=== PATIENT | male | born 1950 | race African-American/Black ===

== ENCOUNTER 2020-04-24 13:55 | Emergency (ER) | payer MEDICARE, OTHER, SELFPAY ==
[2020-04-24 14:12] VITALS: BP 123/75; PULSE 62; RESP 16; TEMP 36.9; O2SAT 96; BMI 24.4
--- NOTE | 2020-04-24 14:34 | HMH.EDGENADL ---
ED Disposition Clinical Impression: Bilateral foot pain, Edema of both feet Disposition: Home, Self-Care Condition on Discharge: Good Instructions: DI for Foot Pain Additional Instructions: Discontinue naproxen and start ibuprofen. Wrap feet and web roll and Panfilo wrap, elevate feet. Follow-up with Dr. Damico next week. Prescriptions: Ibuprofen [Ibuprofen 600mg Tab] 600 mg PO Q6H PRN #20 tab PRN Reason: Moderate Pain Prescription Printed Referrals: Dixon Damico MD [Primary Care Provider] - - Critical Care Critical Care Time: No Attestation: On , the high probability of a clinically significant, sudden or life threatening deterioration of the following system(s) required my full and direct attention, intervention and personal management. The time I documented below is in addition to time spent performing reported procedures but includes the following listed in this critical care notation. Medical Decision Making - Hunter Inquiry Pt receiving controlled substance: No Vital Signs: 04/24/20 14:12 04/24/20 16:43 Temperature 98.4 F Temperature Source Oral Pulse Rate [Right Radial] 62 60 Respiratory Rate 16 Blood Pressure [Right Arm] 123/75 156/70 H Blood Pressure Mean [Right Arm] 91 98 Blood Pressure Source [Right Arm] Automatic Cuff Automatic Cuff Blood Pressure Position [Right Arm] Sitting Sitting 02 Sat by Pulse Oximetry 96 98 Oxygen Delivery Method Room Air Room Air - Lab Data Lab Results 04/24/20 14:36: WBC 7.8, RBC 5.26, Hgb 15.9, Hct 48.0, MCV 91.2, MCH 30.2, MCHC 33.1, RDW 12.9, Plt Count 134 L, MPV 10.4, Neut % (Auto) 62.9, Lymph % (Auto) 30.1, [place] % (Auto) 5.3, Eos % (Auto) 0.4, Baso % (Auto) 1.2, Neut # (Auto) 4.9, Lymph # (Auto) 2.3, [place] # (Auto) 0.4, Eos # (Auto) 0.0, Baso # (Auto) 0.1 04/24/20 14:36: Sodium 137, Potassium 4.4, Chloride 101, Carbon Dioxide 30, Anion Gap 10.4, BUN 11, Creatinine 0.90, Estimated Creat Clear 80, Estimated GFR 84, Est GFR ( Amer) 102, Glucose 83, Calcium 9.5, Total Bilirubin 1.1, AST 49, ALT 32, Alkaline Phosphatase 84, NT-Pro-B Natriuret Pep 236 H, Total Protein 7.8, Albumin 4.2, Globulin 3.6 H, Albumin/Globulin Ratio 1.2 04/24/20 14:40: ESR 6 04/24/20 14:40: D-Dimer 1220 H* 04/24/20 14:40: Uric Acid 6.9, C-Reactive Protein 1.1 Result diagrams: 04/24/20 14:36 04/24/20 14:36 Orders (Tests/Meds): ORDERS Category Date Time Status Chest XR 2 view (NOT portable) [XR chest 2V] Stat Exams 04/24/20 15:40 Taken Foot XR right minimum 3 views [XR foot RT min 3V] Stat Exams 04/24/20 14:47 Taken XR foot LT min 3V Stat Exams 04/24/20 14:47 Taken - Radiology Data #1 Image(s): Chest, Foot/Toes (bilat) Image Reviewed: Yes I reviewed the patient's radiology image Right and left foot: Degenerative changes with spurs, no acute process. Chest: No acute disease, no cardiomegaly or pleural effusions or congestive heart failure. - US Data US Images: Lower Extremity (bilateral) Findings Narrative: As per [facility] procedure, doppler report received from cardiovascular rn: No DVT in either leg - Physician Consults Physician Consulted: Melvin Yanceyeet Time: 16:48 Reason -: Pt condition Comment/Response: He wants the patient's feet put in web roll and Panfilo wrap. 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 Dr. Charles prefers no opiates at this point, wants to change him from naproxen twice a day to ibuprofen 600 mg 3-4 times a day. General Adult HPI - General Chief complaint: PAIN Stated complaint: swellon legs and feet Time Seen by Provider: 04/24/20 14:34 Mode of Arrival: Wheelchair Limitations: No Limitations Description of Symptoms (Recalled from ER Triage Doc. by RN): PT C/O PAIN AND SWELLING IN BILATERAL FEET AND LOWER LEGS THAT HAS WORSENED OVER THE LAST 2 DAYS AND IS MAKING AMBULATION DIFFICULT. - History of Present Illness HPI narrative: The patient is brought fr
[2020-04-24 14:42] LABS: Basophils # 0.1 K/mm3 (0-0.2); Basophils % 1.2 % (0.1-2.0); Chloride 101 mmol/L (98-107); Eosinophils % 0.4 % (0.1-12.0); Hemoglobin 15.9 g/dL (14.1-18.0); Lymphocytes # 2.3 K/mm3 (0.7-4.5); Lymphocytes % 30.1 % (10-50); Mean Corpuscular HGB Conc 33.1 g/dL (31.8-35.4); Mean Corpuscular Hemoglobin 30.2 pg (27.0-31.2); Mean Corpuscular Volume 91.2 fl (80-94); Mean Platelet Volume 10.4 fl (7.4-10.4); Monocytes # 0.4 K/mm3 (0.1-1.0); Monocytes % 5.3 % (1.7-9.3); Neutrophils # 4.9 K/mm3 (1.8-7.8); Neutrophils % 62.9 % (37.0-80.0); Platelet Count 134 K/mm3 (142-424); Potassium 4.4 mmoL/L (3.5-5.1); Red Blood Count 5.26 M/mm3 (4.60-6.20); Red Cell Distribution Width 12.9 % (11.5-17.5); Sodium 137 mmol/L (136-145); White Blood Count 7.8 K/mm3 (4.8-10.8)
[2020-04-24 14:45] LABS: Alanine Aminotransferase 32 U/L (12-78); Albumin Level 4.2 g/dl (3.5-5.0); Albumin/Globulin Ratio 1.2 (1.1-1.8); Alkaline Phosphatase 84 U/L (38-126); Anion Gap 10.4 mEq/L (5-15); Aspartate Amino Transferase 49 U/L (17-59); Bilirubin,Total 1.1 mg/dl (0.2-1.3); Blood Urea Nitrogen 11 mg/dl (9-20); Carbon Dioxide 30 mmol/L (22.0-30.0); Creatinine Clearance Estimated 80 mL/min (50-200); Estimated Glomerular Filt Rate 84 ml/min (>60); GFR (African American) 102 ML/MIN (>60); Globulin 3.6 g/dL (1.3-3.2); Total Protein,Serum 7.8 g/dl (6.3-8.2)
[2020-04-24 14:46] LABS: Calcium 9.5 mg/dl (8.4-10.2); Glucose 83 mg/dl (74-100)
--- NOTE | 2020-04-24 14:47 | XR_ITS ---
PROCEDURE: XR FOOT RT MIN 3V CLINICAL INDICATION: painful feet Foot pain COMPARISON: No exams were available for comparison FINDINGS: No fracture or dislocation. No lytic or blastic change. There is normal mineralization. There are osteoarthritic changes of the 1st metatarsophalangeal joint and the 1st metatarsal tarsal joint as well as the talonavicular and navicular cuneiform joint. There is a small calcaneal spur and there is flexion deformity of toes 2 through 5. There is generalized vascular calcification. No lytic or blastic change. Osteoarthritis involves the PIP joint of the 5th toe Other findings:None. IMPRESSION: Degenerative changes as described above Dictated by: Werner Drummond MD 04/24/2020 18:22 Electronically signed by Werner Drummond MD in [place] 04/24/2020 18:22
--- NOTE | 2020-04-24 14:47 | XR_ITS ---
PROCEDURE: XR FOOT LT MIN 3V CLINICAL INDICATION: pain Left foot pain COMPARISON: XR FOOT RT MIN 3V from 04/24/2020 FINDINGS: No fracture or dislocation. No lytic or blastic change. There is normal mineralization. Mild osteoarthritic changes are present at the 1st metatarsophalangeal joint and at the 1st meta tarsal tarsal joint. Flexion deformity involves the 2nd through 5th toes. There is a small calcaneal spur and there is mild osteoarthritis of the navicular cuneiform joint. Other findings:None. IMPRESSION: Osteoarthritic changes and flexion deformity of the toes Dictated by: Werner Drummond MD 04/24/2020 18:21 Electronically signed by Werner Drummond MD in [place] 04/24/2020 18:21
[2020-04-24 14:55] LABS: NT Pro Brain Natriuretic Pep. 236 pg/mL (0-125)
[2020-04-24 15:16] LABS: C-Reactive Protein 1.1 mg/L (0-4)
[2020-04-24 15:30] LABS: Erythrocyte Sedimentation Rate 6 mm/hr (0-20)
[2020-04-24 15:31] LABS: D-Dimer 1220 ng/mL (0-400)
[2020-04-24 15:33] LABS: Uric Acid 6.9 mg/dl (3.5-8.5)
--- NOTE | 2020-04-24 15:33 | PC.NURSE ---
Critical Lab value called to Pasquale Torres RN
--- NOTE | 2020-04-24 15:34 | CA_ITS ---
APPROVED REPORT Bilateral Lower Extremity Venous Study for DVT. Organic Search Lead: DIANE Indications Lower Extremity Edema: swelling, pain, high d-dimer Vein Imaging CFV (R): compressive, spontaneous, phasic, augmentation FEM (R): compressive, spontaneous, phasic, augmentation POP (R): compressive, spontaneous, phasic, augmentation PTV (R): Compressible GSV (R): compressive, spontaneous, phasic, augmentation SSV (R): Compressible Peroneals (R):Compressible GAS (R): Compressible CFV (L): compressive, spontaneous, phasic, augmentation FEM (L): compressive, spontaneous, phasic, augmentation POP (L): compressive, spontaneous, phasic, augmentation PTV (L): Compressible GSV (L): compressive, spontaneous, phasic, augmentation SSV (L): Compressible Peroneals (L):Compressible GAS (L): Compressible Conclusion No evidence of DVT or superficial thrombophlebitis in the veins scanned of the right lower extremity. No evidence of DVT or superficial thrombophlebitis in the veins scanned of the left lower extremity. Electronically signed by : Werner Drummond MD 04/27/2020 16:21:40
--- NOTE | 2020-04-24 15:40 | XR_ITS ---
PROCEDURE: XR CHEST 2V CLINICAL HISTORY: swelling COMPARISON: No exams were available for comparison FINDINGS: The cardiomediastinal silhouette and pulmonary vascularity are within normal limits. The lungs are clear without infiltrates, suspicious nodules, or pleural effusions. No acute bony abnormalities. IMPRESSION: No acute findings. Dictated by: Werner Drummond MD 04/24/2020 18:16 Electronically signed by Werner Drummond MD in [place] 04/24/2020 18:16
--- NOTE | 2020-04-24 15:45 | PC.NURSE ---
Vascular Lab at bedside
--- NOTE | 2020-04-24 16:33 | PC.NURSE ---
dr jolanta de oliveira.
--- NOTE | 2020-04-24 16:39 | PC.NURSE ---
Dr Fortune speaking with Dr Charles
[2020-04-24 16:43] VITALS: BP 156/70; PULSE 60; O2SAT 98
[2020-04-24 16:54] VITALS: BP 160/87; PULSE 78; RESP 20; TEMP 36.8; O2SAT 98
--- NOTE | 2020-04-24 16:59 | PC.NURSE ---
Feet wrapped with web roll and mesha wraps per MD order
== END 2020-04-24 17:12 | disposition home or self-care (01) ==
PROVIDERS: Emergency Provider Emergency Medicine; PCP Family Medicine
DX: R60.0 Localized edema (principal); M79.671 Pain in right foot; M79.672 Pain in left foot; I69.320 Aphasia following cerebral infarction
CPT/HCPCS: 71046; 73630; 80053; 83880; 84550; 85025; 85378; 85651; 86140; 93970; 99283

== ENCOUNTER 2021-04-08 15:10 | Inpatient (IN) | payer MEDICARE, MEDICAID, SELFPAY ==
[2021-04-08] VITALS (16 sets, daily range): BP systolic 117–174; BP diastolic 57–93; PULSE 63–90; RESP 15–22; TEMP 36.6–36.9; O2SAT 98–100; BMI 21.1; BMI 19.7
--- NOTE | 2021-04-08 15:20 | XR_ITS ---
PROCEDURE: XR CHEST PORTABLE CLINICAL HISTORY: weakness COMPARISON: No exams were available for comparison FINDINGS: The cardiomediastinal silhouette and pulmonary vascularity are within normal limits. Tortuous descending thoracic aorta is noted. The lungs are clear without infiltrates, suspicious nodules, or pleural effusions. No acute bony abnormalities. IMPRESSION: No acute findings. Dictated by: Mavis Thornton 04/08/2021 15:53 Mavis Thornton in [place] 04/08/2021 15:53
--- NOTE | 2021-04-08 15:28 | HMH.EDGENADL ---
ED Disposition Clinical Impression: Hyperglycemia UTI (urinary tract infection) Qualifiers: Urinary tract infection type: site unspecified Hematuria presence: with hematuria Qualified Code(s): N39.0 - Urinary tract infection, site not specified Disposition: Admitted as Observation Condition on Discharge: Fair Referrals: Provider,Referral, [Primary Care Provider] - - Critical Care Critical Care Time: No Attestation: On 04/08/21, the high probability of a clinically significant, sudden or life threatening deterioration of the following system(s) required my full and direct attention, intervention and personal management. The time I documented below is in addition to time spent performing reported procedures but includes the following listed in this critical care notation. Medical Decision Making - Medical Records Medical records reviewed: Yes: I reviewed the patient's medical records. MR Comment: To prior emergency department visits here for swollen feet and legs, seen by me each time, 2016 and 2019. Noted to have podiatry visits for diabetic foot treatment. Personnel at [facility] communicated to our nurse that the patient used to be diabetic, but is no longer diabetic and is not on any diabetic medications and does not have his blood sugar checked. - Hunter Inquiry Pt receiving controlled substance: No Vital Signs: 04/08/21 15:10 04/08/21 15:46 Temperature 98.4 F Temperature Source Oral Pulse Rate 85 Pulse Rate [Left Radial] 90 Respiratory Rate 18 20 Blood Pressure 117/73 Blood Pressure [Right Arm] 133/74 Blood Pressure Mean 87 Blood Pressure Mean [Right Arm] 93 Blood Pressure Source [Right Arm] Automatic Cuff Blood Pressure Position [Right Arm] Sitting 02 Sat by Pulse Oximetry 98 100 Oxygen Delivery Method Room Air - Lab Data Lab Results 04/08/21 15:34: WBC 13.5 H, RBC 4.70, Hgb 13.5 L, Hct 41.3 L, MCV 87.9, MCH 28.7, MCHC 32.6, RDW 13.0, Plt Count 428 H, MPV 8.7, Neut % (Auto) 75.7, Lymph % (Auto) 17.0, [place] % (Auto) 6.1, Eos % (Auto) 0.5, Baso % (Auto) 0.7, Neut # (Auto) 10.2 H, Lymph # (Auto) 2.3, [place] # (Auto) 0.8, Eos # (Auto) 0.1, Baso # (Auto) 0.1 04/08/21 15:34: Sodium 131 L, Potassium 3.7, Chloride 97 L, Carbon Dioxide 26, Anion Gap 11.7, BUN 21 H, Creatinine 0.90, Estimated Creat Clear 73, Estimated GFR 84, Est GFR ( Amer) 102, Glucose 318 H, Calcium 9.1, Total Bilirubin 1.3, AST 58, ALT 34, Alkaline Phosphatase 200 H, Troponin I < 0.01, Total Protein 8.4 H, Albumin 3.2 L, Globulin 5.2 H, Albumin/Globulin Ratio 0.6 L 04/08/21 15:34: Lactate 2.6 H 04/08/21 15:42: Urine Color Brown, Urine Appearance Turbid, Urine pH 6.5, Ur Specific [place] >= 1.030, Urine Protein 2+, Urine Glucose (UA) Negative, Urine Ketones Negative, Urine Blood 3+, Urine Nitrate Positive, Urine Bilirubin Negative, Urine Urobilinogen 4.0, Ur Leukocyte Esterase 2+ A, Urine RBC Tntc, Urine WBC Tntc, Ur Squamous Epith Cells 3-5, Urine Bacteria 4+, Urine Yeast 2+ Result diagrams: 04/08/21 15:34 04/08/21 15:34 Orders (Tests/Meds): ED MEDICATIONS Generic Name Dose Route Start Last Admin Trade Name Freq PRN Reason Stop Dose Admin Ertapenem 1 gm/ Sodium 50 mls @ 100 mls/hr 04/08/21 16:30 04/08/21 16:30 Chloride IV 04/22/21 16:29 100 mls/hr Q24H FISH Administration Protocol Discontinued Medications Generic Name Dose Route Start Last Admin Trade Name Freq PRN Reason Stop Dose Admin Sodium Chloride 1,000 ml 04/08/21 15:47 04/08/21 15:58 Sodium Chloride 0.9% 1000ml Bag IV 04/08/21 15:48 1,000 ml BOLUS ONE Administration ORDERS Category Date Time Status CT abdomen pelvis wo con Stat Cat Scan 04/08/21 16:53 Taken Full Resp Panel w/COVID ([facility]) Routine Lab 04/08/21 15:47 Received Troponin I Q3H Lab 04/08/21 18:30 Ordered Troponin I Q3H Lab 04/08/21 21:30 Ordered Blood Culture Stat Micro 04/08/21 15:34 Received Urine Culture Stat Micro 04/08/21
[2021-04-08 16:00] LABS: Basophils # 0.1 K/mm3 (0-0.2); Basophils % 0.7 % (0.1-2.0); Eosinophils # 0.1 K/mm3 (0.0-0.4); Eosinophils % 0.5 % (0.1-12.0); Hematocrit 41.3 % (42.0-52.0); Hemoglobin 13.5 g/dL (14.1-18.0); Lymphocytes # 2.3 K/mm3 (0.7-4.5); Mean Corpuscular HGB Conc 32.6 g/dL (31.8-35.4); Mean Corpuscular Hemoglobin 28.7 pg (27.0-31.2); Mean Corpuscular Volume 87.9 fl (80-94); Mean Platelet Volume 8.7 fl (7.4-10.4); Monocytes # 0.8 K/mm3 (0.1-1.0); Monocytes % 6.1 % (1.7-9.3); Neutrophils # 10.2 K/mm3 (1.8-7.8); Neutrophils % 75.7 % (37.0-80.0); Platelet Count 428 K/mm3 (142-424); White Blood Count 13.5 K/mm3 (4.8-10.8)
[2021-04-08 16:01] LABS: Chloride 97 mmol/L (98-107); Potassium 3.7 mmoL/L (3.5-5.1); Sodium 131 mmol/L (136-145)
[2021-04-08 16:03] LABS: Alanine Aminotransferase 34 U/L (12-78); Aspartate Amino Transferase 58 U/L (17-59); Blood Urea Nitrogen 21 mg/dl (9-20); Creatinine Clearance Estimated 73 mL/min (50-200); Estimated Glomerular Filt Rate 84 ml/min (>60); GFR (African American) 102 ML/MIN (>60)
[2021-04-08 16:04] LABS: Microscopic, Urine URINE MICROSCOPIC (MICROSCOPIC)
[2021-04-08 16:04] LABS: Albumin Level 3.2 g/dl (3.5-5.0); Albumin/Globulin Ratio 0.6 (1.1-1.8); Alkaline Phosphatase 200 U/L (38-126); Anion Gap 11.7 mEq/L (5-15); Bilirubin,Total 1.3 mg/dl (0.2-1.3); Calcium 9.1 mg/dl (8.4-10.2); Carbon Dioxide 26 mmol/L (22.0-30.0); Globulin 5.2 g/dL (1.3-3.2); Glucose 318 mg/dl (74-100); Total Protein,Serum 8.4 g/dl (6.3-8.2)
--- NOTE | 2021-04-08 16:04 | ECG_ITS ---
APPROVED REPORT Exam: Resting ECG HR:85 bpm ECG Measurements Heart Rate 85 AXES ID 184 P 86 QRSd 90 QRS 23 QT 362 T 87 QTc 430 Conclusion Normal sinus rhythm with sinus arrhythmia Nonspecific ST and T wave abnormality Abnormal ECG Electronically signed by : Jacob Penaloza, 04/10/2021 11:38:25
[2021-04-08 16:07] LABS: Adenovirus,PCR Not Detected (NotDetected); Bordetella Pertussis Not Detected (NotDetected); Chlamydophila Pneumoniae, PCR Not Detected (NotDetected); Coronavirus 19, PCR Not Detected (NotDetected); Coronavirus 229E Not Detected (NotDetected); Coronavirus NL63 Not Detected (NotDetected); Coronavirus OC43 Not Detected (NotDetected); Coronovirus HKU1,PCR Not Detected (NotDetected); Human Metapneumovirus Not Detected (NotDetected); Influenza A, PCR Not Detected (NotDetected); Influenza AH1, 2009 Not Detected (NotDetected); Influenza AH1, PCR Not Detected (NotDetected); Influenza AH3,PCR Not Detected (NotDetected); Influenza B, PCR Not Detected (NotDetected); Mycoplasma Pneumoniae, PCR Not Detected (NotDetected); Parainfluenza 1, PCR Not Detected (NotDetected); Parainfluenza 2, PCR Not Detected (NotDetected); Parainfluenza 3, PCR Not Detected (NotDetected); Parainfluenza 4, PCR Not Detected (NotDetected); Respiratory Syncytial Virus Not Detected (NotDetected); Rhinovirus/Enterovirus Not Detected (NotDetected)
[2021-04-08 16:08] LABS: Appearance,Urine TURBID (Clear); Blood, Urine 3+ (Negative); Color,Urine BROWN (Yellow); Glucose,Urine (UA) Negative (Negative); Ketones,Urine Negative (Negative); Leukocyte Esterase,Urine 2+ (Negative); Nitrate,Urine POSITIVE (Negative); PH,Urine 6.5 (5.0-8.5); Protein,Urine 2+ (Negative); Specific Gravity, Urine >= 1.030 (1.005-1.030)
[2021-04-08 16:09] LABS: Lactic Acid 2.6 mmol/L (0.7-2.1)
[2021-04-08 16:20] LABS: Bacteria,Urine 4+ /lpf; Bilirubin,Urine Negative (Negative); RBC,Urine TNTC #/hpf (0-3); WBC,Urine TNTC #/hpf (0-3)
[2021-04-08 16:21] LABS: Yeast,Urine 2+ /lpf
[2021-04-08 16:21] LABS: Troponin I < 0.01 ng/ml (0.00-0.034)
--- NOTE | 2021-04-08 16:50 | PC.NURSE ---
Dr Fortune speaking with Dr Tan
--- NOTE | 2021-04-08 16:53 | CT_ITS ---
PROCEDURE INFORMATION: Exam: CT Abdomen And Pelvis Without Contrast Exam date and time: 04/08/2021 4:53 PM Age: 70 years old Clinical indication: Other: Hematuria TECHNIQUE: Imaging protocol: Computed tomography of the abdomen and pelvis without contrast. Radiation optimization: All CT scans at this facility use at least one of these dose optimization techniques: automated exposure control; mA and/or kV adjustment per patient size (includes targeted exams where dose is matched to clinical indication); or iterative reconstruction. COMPARISON: No relevant prior studies available. FINDINGS: Liver: Normal. No mass. Gallbladder and bile ducts: Normal. No calcified stones. No ductal dilation. Pancreas: Normal. No ductal dilation. Spleen: Normal. No splenomegaly. Adrenal glands: Normal. No mass. Kidneys and ureters: No hydronephrosis or stone. 0.5 cm right renal simple cyst. Stomach and bowel: Moderate stool ball distends the rectum without abscess or obstruction. Appendix: The appendix is not visualized. No inflammatory change around the cecum. Intraperitoneal space: Unremarkable. No free air. No significant fluid collection. Vasculature: Extensive atherosclerosis without aneurysm. Lymph nodes: Unremarkable. No enlarged lymph nodes. Urinary bladder: Unremarkable as visualized. Reproductive: Unremarkable as visualized. Bones/joints: Eroded vertebral body endplates at L4-L5 level with surrounding soft tissue prominence surround the vertebral bodies suggesting discitis and osteomyelitis. Evaluation for abscess is limited on this nonenhanced study. Consider MRI without and with contrast. Soft tissues: Unremarkable. Other findings: No other acute disease seen on nonenhanced study. As Above. IMPRESSION: 1. Eroded vertebral body endplates at L4-L5 level with surrounding soft tissue prominence surrounding the vertebral bodies suggesting discitis and osteomyelitis. Evaluation for abscess is limited on this nonenhanced study. Recommend MRI without and with contrast. 2. Moderate stool ball distends the rectum without abscess or obstruction. 3. No other acute disease seen on nonenhanced study. As Above. COMMENTS: Consistent with the [employer]'s Incidental Findings Committee white paper (J Am Jaun Radiol 2018): Any incidental renal lesion less than 1 cm or classified as too small to characterize, or any incidental cystic renal lesion characterized as simple-appearing, is likely benign. No follow-up imaging is recommended for these lesions per consensus recommendations based on imaging criteria.
[2021-04-08 19:00] LABS: Troponin I < 0.01 ng/ml (0.00-0.034)
[2021-04-08 19:48] LABS: Reflex Lactic Add Lactic Reflex
[2021-04-08 20:24] LABS: Lactic Acid Follow Up (RFLX 1) 1.8 mmol/L (0.7-2.1)
--- NOTE | 2021-04-08 21:55 | PC.NURSE ---
CALLED REPORT TO Gabriela Ferguson rn
--- NOTE | 2021-04-08 22:06 | PC.NURSE ---
pt arrived to floor via stretcher
[2021-04-08 22:16] LABS: Troponin I < 0.01 ng/ml (0.00-0.034)
[2021-04-08 23:13] LABS: POC Glucose,Bedside 148 (70-110)
[2021-04-09] VITALS: BP 166/72; PULSE 80; PULSE 84; RESP 17; TEMP 36.7; O2SAT 97
--- NOTE | 2021-04-09 03:09 | PC.NURSE ---
Pt is able to follow commands well and shakes head yes and no appropriately to questions. Pt is nonverbal, which is baseline. Lungs are CTA, on room air. Bowel sounds x4, abd soft and nontender. Pt shakes head yes when asked if hes in pain and points to his bladder. Pain is controlled with morphine per mar. Pt is incontinent, UOP is brown and very foul smelling. Pt turns independently. No edema noted, pulses are equal. IV patent, NS @ 100. VSS, call light in reach, no concerns at this time.
[2021-04-09 04:00] VITALS: BP 166/64; PULSE 70; PULSE 74; RESP 17; TEMP 36.7; O2SAT 96
[2021-04-09 05:00] VITALS: BMI 19.6
[2021-04-09 05:49] LABS: POC Glucose,Bedside 108 (70-110)
[2021-04-09 06:49] LABS: Anion Gap 7.3 mEq/L (5-15); Blood Urea Nitrogen 18 mg/dl (9-20); Calcium 8.7 mg/dl (8.4-10.2); Carbon Dioxide 28 mmol/L (22.0-30.0); Chloride 102 mmol/L (98-107); Creatinine Clearance Estimated 67 mL/min (50-200); Estimated Glomerular Filt Rate 84 ml/min (>60); GFR (African American) 102 ML/MIN (>60); Glucose 118 mg/dl (74-100); Potassium 3.3 mmoL/L (3.5-5.1); Sodium 134 mmol/L (136-145)
--- NOTE | 2021-04-09 07:32 | HMH.PHAVTE ---
[facility] Pharmacy VTE Monitoring - Patient Demographics Admission date: 04/08/21 Report Date: 04/09/21 Time: 07:32 Allergies/Adverse Reactions: Patient Allergies No Known Allergies Allergy (Verified 10/21/20 11:30) Height: 1.85 m Weight: 67.16 kg Patient Problems: Current Active Problems (This Medical Record has been edited. Action required.) UTI (urinary tract infection) (Acute) Hyperglycemia (Acute) - VTE Risk Labs: VTE Related Lab Results Hgb 13.5 g/dL (14.1-18.0) L 04/08/21 15:34 Hct 41.3 % (42.0-52.0) L 04/08/21 15:34 Plt Count 428 K/mm3 (142-424) H 04/08/21 15:34 BUN 18 mg/dl (9-20) 04/09/21 05:34 Creatinine 0.90 mg/dl (0.66-1.25) 04/09/21 05:34 Estimated Creat Clear 67 mL/min (50-200) 04/09/21 05:34 Was VTE Risk Assessment Performed: No VTE Score: 3 VTE Risk Level: Low Risk - Prophylaxis VTE Prophylaxis Ordered?: Yes Types of VTE Prophylaxis: TEDS Knee High Location of Applied Device: Bilateral Lower Extremeties
--- NOTE | 2021-04-09 07:36 | HMH.PHAINT ---
MEDICATION RECONCILIATION COMPLETED ON PATIENT USING EXTERNAL FILL HISTORY FROM PHARMACY. -ANGELINA SCHUMACHER, BLANCHED
[2021-04-09 08:00] VITALS: BP 125/53; PULSE 79; RESP 20; TEMP 36.9; O2SAT 98
--- NOTE | 2021-04-09 08:59 | SW/DCPLANNER ---
Addendum entered by [facility] 04/12/21 09:18: Patients brother is agreeable to assist with any paperwork via fax. Vahid Herrera [phone] Addendum entered by [facility] 04/12/21 08:40: I have updated Kusum Yi with [facility] that this patient will not discharge today. I will continue to update Kusum during patients stay. Addendum entered by [facility] 04/09/21 12:46: This patient has been accepted to [facility] once medically stable for discharge. I have informed Dr Barlow/Fadi of plan. Dr Tan has also agreed to follow this patient while at [facility]. Addendum entered by [facility] 04/09/21 09:52: I have spoke with Scale Model Maker Prabha at [facility] ([phone]) regarding this patient. Prabha has stated that this patient has been with [facility] since January of 2014. Patient is nonverbal and has been nonverbal since most of his adult life and per Prabha makes his own decisions. Patient was admitted to [facility] in January for sepsis then sent to their skilled unit. Prabha stated that patient was discharged back to [facility] first of February. Prabha has been searching for placement for this patient since second week of February. Prabha has been unsuccessful with placement: sent to [facility] and [place] in [facility]. Prabha stated that she also spoke with a lady (Hawa Forman) that assist with placement and has not heard back. Prabha stated that she will make contact with patients family in [place] to ask if they will be willing to assist this patient with any paperwork. I will continue to follow up with Prabha and Cosmo Forrest regarding this patient. Original Note: Patient currently resides at [facility]. I have attempted to contact patients family member (Kusum Ramos) listed in demographics: VM goes to [facility] and mailbox is currently full. I will continue to try to contact Kusum today. At this time patient will more than likely need placement at time of discharge. I have spoke with Kusum Yi at [facility] whom stated they currently have males beds available: patient information has been faxed. I will also speak with Kathie at [place] if [facility] is not able to accept. Patient will not be ready for discharge until next week. I will continue to get in contact with Curry Erazo, Kusum Ramos and Cosmo Forrest/Opal Mejia.
--- NOTE | 2021-04-09 11:15 | CA_ITS ---
APPROVED REPORT EXAM: Limited 2D Echocardiogram Music Typographer: Emily Herr RVT Ht: 6 ft 0 in Wt: 148lbs BSA: 1.87 BP: 125/53 mmHg Indications: MURMUR,SMOKR,DM,HTN,HLD,EDEMA VERY TDS-PT UNABLE TO FOLLOW COMMANDS, PT SCANNED ON BACK TILTED TO RT 2D Dimensions LVOT 2.62 cm (M/F) 1.5-2.5 M-Mode Dimensions RVDd 3.77 cm (0.9-2.6) LA Diam 3.06 cm (1.9-4.0) LVDd 5.48 cm (3.5-5.7) Ao Diam 4.99 cm (2.0-3.7) LVDs 2.85 cm (3.5-5.7) IVSd 1.52 cm (0.6-1.1) PWd 1.05 cm (0.6-1.1) EF (Teich) 78.90% FS 48.00% EDV (Teich) 146.20 mL ESV (Teich) 30.90 mL LV Diastology E Decel Time 203.00 (160-240 msec) E/A Ratio 0.8 Aortic Valve AO Peak GR. 3.80 mmHg Mitral Valve MV E Max Justyn. 59.00 (40-130 cm/s) MV A Velocity 70.00 (40-130 cm/s) E/A Ratio 0.85 MV Decel. Time 203.00 (160-240 ms) MV PHT 60.00 ms Pulmonary Valve PV Peak Velocity 77.00 (50-150 cm/s) Tricuspid Valve TR P. Velocity 274.00 cm/s RAP Estimate 10.00 mmHg RVSP 40.00 mmHg Left Ventricle Technically very challenging and difficult study because of the patient factors and poor acoustic windows. Left atrium is mildly enlarged, left ventricle is normal size, mild concentric left ventricular hypertrophy, visually estimated ejection fraction approximately 45 to 50%, there is abnormal septal motion, Doppler evidence of impaired LV relaxation seen, but the diastolic parameters were not obtained. Right Ventricle Right atrium and right ventricle are mildly enlarged with normal contractility. Aortic Valve Aortic valve is minimally thickened and fibrosed, there is no aortic stenosis or aortic insufficiency. Mitral Valve Mitral valve is minimally thickened, there is mild mitral regurgitation. Tricuspid Valve Tricuspid grossly normal, there is mild tricuspid regurgitation. Calculated right ventricular systolic pressure is 40 mmHg. Pulmonic Valve Pulmonic valve is poorly visualized. Great Vessels Aortic root is normal size. Pericardium Trivial pericardial effusion noted. Conclusion 1. Technically very difficult and challenging study. 2. Mild biatrial alignment, normal left ventricular size, mild concentric left ventricular hypertrophy, visually estimated ejection fraction is probably 45 to 50%, there is abnormal septal motion, Doppler evidence of impaired LV relaxation seen. 3. Mild mitral and tricuspid regurgitation, calculated right ventricular systolic pressure is 40 mmHg. Inferior vena cava is mildly dilated. 4. Trivial pericardial effusion noted. Electronically signed by : Royce Garcia, 04/10/2021 07:28:21
--- NOTE | 2021-04-09 11:15 | CT_ITS ---
PROCEDURE: CT HEAD/BRAIN WO CON CLINICAL INDICATION: ams COMPARISON: No exams were available for comparison TECHNIQUE: Axial images obtained. All CT scans at the facility use one or more dose reduction, viz: automated exposure control, ma/kV adjustment per patient size (including targeted exams where dose is matched to indication, i.e. head), or iterative reconstruction technique. FINDINGS: Encephalomalacia is noted in the left temporal and left posterior parietal lobes, likely sequela of old infarct. Focal hypodensity with encephalomalacia noted in the left frontal and parietal lobes, likely sequela of old infarcts. No acute intra or extra-axial hemorrhage, space occupying lesion or acute infarct is noted. Ex vacuo dilation of the ventricles are noted, worse in the left lateral ventricle. Mildly dilated 3rd ventricle is noted. There is generalized parenchymal volume loss. Scattered periventricular and subcortical white matter hypodensities are noted, may represent microvascular changes. Atherosclerotic vascular calcification is noted. Calcification noted in the pineal gland. No midline shift or mass effect. The visualized osseous structures are unremarkable. Minor mucosal thickening of the ethmoidal sinuses. The rest of the paranasal sinuses are unremarkable. Mastoid air cells are clear. IMPRESSION: No acute infarcts, intra or extra-axial hemorrhage. 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 Generalized volume loss, microvascular changes and atherosclerotic disease. Dictated by: Mavis Thornton 04/09/2021 12:36 Mavis Thornton in [place] 04/09/2021 12:36
--- NOTE | 2021-04-09 11:21 | HMH.HP ---
*Admission Date: 04/08/21 *Chief complaint: ams *History of present illness: 70 yr old male presents to ed via ambulance from [facility] assisted living. The patient is nonverbal. 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 Per ed staff at [facility] thought he was getting dehydrated because his eyes and mouth are dry and he is refusing to eat and drink. They report that his primary care provider is trying to get him moved into a higher level of care, but thus far unsuccessful. Handwritten note sent from [facility] says that the patient has been treated for this previously and has seen primary care provider Dr. Jones of [facility]. Pt was found to have UTI and admitted for further work up and pos higher level of care at [facility] History I have reviewed the patient's past medical history: Yes Medical History: Reports:: Cerebrovascular Accident, Diabetes Mellitus Type 2, Hepatitis, Hyperlipidemia, Hypertension, Seizures Denies:: Diabetes Mellitus Type 1 *Have you ever received a pneumonia vaccine?: No *Have you received a flu vaccine this season?: No Other Medical History: Reports: Other Other Surgeries: Yes: No Previous Surgery - *Social History Smoking Status: Unknown if ever smoked Alcohol Intake: never Alcohol Intake Frequency:: other Substance Use Type: former substance user *Occupational Status:: disabled Housing: assisted living facility *Travel in the last 8 weeks: None Family Hx:: Unable to obtain Review of Systems - Review of Systems Review of systems:: unable to obtain, pertinent systems reviewed and negative unless documented below - Constitutional Denies body ache(s) - Eyes Denies blurry vision - ENT Denies bleeding gums - *Cardiovascular Denies chest pain with activity - *Respiratory Denies chest congestion - *Gastrointestinal Denies nausea, Denies vomiting - *Genitourinary Denies urinary frequency - *Musculoskeletal Denies neck pain - Integumentary/Breasts Denies rash - *Neurologic Denies localized weakness - Psychiatric Denies anxiety - Endocrine Denies flushing - Hematologic/Lymphatic Denies enlarged lymph nodes - Allergic/Immunologic Denies itchy eyes Meds Home Medications Medication Instructions Recorded Confirmed Type hydrochlorothiazide 25 mg tablet 50 mg PO DAILY 07/30/20 04/08/21 History Atorvastatin Calcium [Lipitor 20mg 20 mg PO HS 04/08/21 04/08/21 History Tablet*] Metoprolol Tartrate [Lopressor 12.5 mg PO BID 04/08/21 04/08/21 History 25mg tablet] Allergies Allergy/AdvReac Type Severity Reaction Status Date / Time No Known Allergies Allergy Verified 10/21/20 11:30 Exam Vital signs and Labs for Last 24 Hours: Temp Pulse Resp BP Pulse Ox 98.4 F 79 20 125/53 L 98 04/09/21 08:00 04/09/21 08:00 04/09/21 08:00 04/09/21 08:00 04/09/21 08:00 Laboratory Results - last 24 hr 04/08/21 15:34: WBC 13.5 H, RBC 4.70, Hgb 13.5 L, Hct 41.3 L, MCV 87.9, MCH 28.7, MCHC 32.6, RDW 13.0, Plt Count 428 H, MPV 8.7, Neut % (Auto) 75.7, Lymph % (Auto) 17.0, [place] % (Auto) 6.1, Eos % (Auto) 0.5, Baso % (Auto) 0.7, Neut # (Auto) 10.2 H, Lymph # (Auto) 2.3, [place] # (Auto) 0.8, Eos # (Auto) 0.1, Baso # (Auto) 0.1 04/08/21 15:34: Sodium 131 L, Potassium 3.7, Chloride 97 L, Carbon Dioxide 26, Anion Gap 11.7, BUN 21 H, Creatinine 0.90, Estimated Creat Clear 73, Estimated GFR 84, Est GFR ( Amer) 102, Glucose 318 H, Calcium 9.1, Total Bilirubin 1.3, AST 58, ALT 34, Alkaline Phosphatase 200 H, Troponin I < 0.01, Total Protein 8.4 H, Albumin 3.2 L, Globulin 5.2 H, Albumin/Globulin Ratio 0.6 L 04/08/21 15:34: Lactate 2.6 H 04/08/21 15:42: Urine Color Brown, Urine Appearance Turbid, Urine pH 6.5, Ur Specific [place] >= 1.030, Urine Protein 2+, Urine Glucose (UA) Negative, Urine Ketones Negative, Urine Blood 3+, Urine Nitrate Positive, Urine Bilirubin Negative, Urine Urobilinogen 4.0, Ur Leukocyte Esterase 2+ A, Ur
[2021-04-09 12:04] LABS: POC Glucose,Bedside 108 (70-110)
[2021-04-09 14:00] VITALS: BMI 19.5
[2021-04-09 16:00] VITALS: BP 122/61; PULSE 73; RESP 16; TEMP 37.3; O2SAT 100
[2021-04-09 16:32] LABS: POC Glucose,Bedside 118 (70-110)
--- NOTE | 2021-04-09 17:10 | PC.NURSE ---
NO ACUTE CHANGES. PT IS NON VERBAL. AMBULATES WITH ONE ASSIST. APPETITE HAS BEEN FAIR. VSS. SAFETY IN PLACE. WILL CONT. TO MONITOR.
[2021-04-09 20:00] VITALS: BP 129/69; PULSE 63; RESP 17; TEMP 36.4; O2SAT 100
[2021-04-09 22:21] LABS: POC Glucose,Bedside 123 (70-110)
[2021-04-10 04:00] VITALS: BP 138/72; PULSE 64; RESP 16; TEMP 36.6; O2SAT 99
--- NOTE | 2021-04-10 04:08 | PC.NURSE ---
PT HAS DONE WELL AND SLEPT MOST OF THIS SHIFT. HE IS NON-VERBAL, BUT A&OX4 WHICH IS BASELINE. COMMUNICATES WELL USING HANDS AND HEAD GESTURES. CAN FOLLOW COMMANDS. IV PATENT AND INFUSING WELL. NO ACUTE CHANGES. PT HAS DENIED PAIN THIS SHIFT. CALL LIGHT WITHIN REACH. WILL CONTINUE TO MONITOR.
[2021-04-10 05:00] VITALS: BMI 19.5
[2021-04-10 05:34] LABS: POC Glucose,Bedside 94 (70-110)
[2021-04-10 07:44] VITALS: BP 159/85; PULSE 73; RESP 18; TEMP 37.1; O2SAT 99
[2021-04-10 08:03] LABS: Basophils # 0.1 K/mm3 (0-0.2); Basophils % 0.7 % (0.1-2.0); Eosinophils % 0.3 % (0.1-12.0); Hematocrit 37.3 % (42.0-52.0); Hemoglobin 11.6 g/dL (14.1-18.0); Lymphocytes # 3.1 K/mm3 (0.7-4.5); Lymphocytes % 21.5 % (10-50); Mean Corpuscular Hemoglobin 27.7 pg (27.0-31.2); Mean Corpuscular Volume 89.4 fl (80-94); Mean Platelet Volume 7.1 fl (7.4-10.4); Monocytes # 1.2 K/mm3 (0.1-1.0); Monocytes % 8.4 % (1.7-9.3); Neutrophils # 9.9 K/mm3 (1.8-7.8); Neutrophils % 69.1 % (37.0-80.0); Platelet Count 417 K/mm3 (142-424); Red Blood Count 4.17 M/mm3 (4.60-6.20); Red Cell Distribution Width 12.5 % (11.5-17.5); White Blood Count 14.4 K/mm3 (4.8-10.8)
[2021-04-10 08:13] LABS: Anion Gap 7.1 mEq/L (5-15); Blood Urea Nitrogen 15 mg/dl (9-20); Calcium 8.6 mg/dl (8.4-10.2); Carbon Dioxide 27 mmol/L (22.0-30.0); Chloride 101 mmol/L (98-107); Creatinine Clearance Estimated 67 mL/min (50-200); Estimated Glomerular Filt Rate 84 ml/min (>60); GFR (African American) 102 ML/MIN (>60); Glucose 148 mg/dl (74-100); Potassium 3.1 mmoL/L (3.5-5.1); Sodium 132 mmol/L (136-145)
--- NOTE | 2021-04-10 09:07 | P.PN_ITS ---
Internal Medicine - PN: Subj *Date: 04/11/21 *Time: 06:31 Interval history: pt with improvement and more alert - urine cult ure pending Exam Vital signs and Labs for Last 24 Hours: Temp Pulse Resp BP Pulse Ox 98.7 F 73 18 159/85 H 99 04/10/21 07:44 04/10/21 07:44 04/10/21 07:44 04/10/21 07:44 04/10/21 07:44 Laboratory Results - last 24 hr 04/09/21 11:56: POC Glucose 108 04/09/21 16:25: POC Glucose 118 H 04/09/21 21:41: POC Glucose 123 H 04/10/21 05:25: POC Glucose 94 04/10/21 07:32: WBC 14.4 H, RBC 4.17 L, Hgb 11.6 L, Hct 37.3 L, MCV 89.4, MCH 27.7, MCHC 31.0 L, RDW 12.5, Plt Count 417, MPV 7.1 L, Neut % (Auto) 69.1, Lymph % (Auto) 21.5, [place] % (Auto) 8.4, Eos % (Auto) 0.3, Baso % (Auto) 0.7, Neut # (Auto) 9.9 H, Lymph # (Auto) 3.1, [place] # (Auto) 1.2 H, Eos # (Auto) 0.0, Baso # (Auto) 0.1 04/10/21 07:32: Sodium 132 L, Potassium 3.1 L, Chloride 101, Carbon Dioxide 27, Anion Gap 7.1, BUN 15, Creatinine 0.90, Estimated Creat Clear 67, Estimated GFR 84, Est GFR ( Amer) 102, Glucose 148 H, Calcium 8.6 I & O for Last 24 hours: Intake & Output 04/07/21 04/08/21 04/09/21 04/10/21 11:59 11:59 11:59 11:59 Intake Total 480 / 480 2520 / 2520 Balance 480 / 480 2520 / 2520 Weight 148 lb 1 oz 147 lb 11.355 oz Microbiology Reports for the Last 24 Hours: Microbiology 04/08/21 15:42 Urine,Catheterized Urine Culture - Preliminary NO GROWTH AFTER 24 HOURS - Constitutional no acute distress, cachectic - *Routine HEENT Exam Head: Present: normocephalic Eye: Present: EOMI, PERRL ENT: Present: mucous membranes dry - *Routine Neck Exam Present: supple - *Routine Respiratory Exam Present: decreased breath sounds - *Routine Cardiovascular Exam Present: RRR, murmur - *Routine Abdominal Exam Present: soft - *Routine Extremities Exam Absent: calf tenderness - *Routine Skin Exam Present: intact - *Routine Neurological Exam Present: altered mental status more alert- mute still - Routine Psychiatric Exam Present: unable to assess Assessment and Plan (1) History of CVA (cerebrovascular accident) Status: Acute Category: Medical Code(s): Z86.73 - Personal history of transient ischemic attack (TIA), and cerebral infarction without residual deficits (2) Hyperglycemia Status: Acute Category: Medical Code(s): R73.9 - Hyperglycemia, unspecified (3) UTI (urinary tract infection) Status: Acute Qualifiers: Urinary tract infection type: site unspecified Hematuria presence: with hematuria Qualified Code(s): N39.0 - Urinary tract infection, site not specified; R31.9 - Hematuria, unspecified Category: Medical Code(s): N39.0 - Urinary tract infection, site not specified (4) Diabetes mellitus Status: Acute Qualifiers: Diabetes mellitus type: type 2 Diabetes mellitus group home insulin use: without radiology manager use Diabetes mellitus complication status: without complication Qualified Code(s): E11.9 - Type 2 diabetes mellitus without complications Category: Medical Code(s): E11.9 - Type 2 diabetes mellitus without complications (5) Expressive aphasia Status: Chronic Category: Medical Code(s): R47.01 - Aphasia
[2021-04-10 11:32] LABS: POC Glucose,Bedside 122 (70-110)
[2021-04-10 15:22] VITALS: BP 153/77; PULSE 61; RESP 18; TEMP 36.8; O2SAT 100
--- NOTE | 2021-04-10 15:32 | PC.NURSE ---
No acute changes this shift. Pt is non-verbal, but is able to make needs voiced and uses call cordova appropriately. Remains on room air. Denies pain. Continues to be incontinent of bladder, attends changed. Pt is able to turn and reposition himself independently. Bed alarm in place for safety. Call cordova w/in reach. Currently lying in bed resting.
[2021-04-10 16:03] LABS: POC Glucose,Bedside 102 (70-110)
[2021-04-10 20:00] VITALS: BP 146/73; PULSE 65; RESP 18; TEMP 36.8; O2SAT 100
[2021-04-10 20:34] LABS: POC Glucose,Bedside 100 (70-110)
[2021-04-11 04:00] VITALS: BP 143/64; PULSE 75; RESP 20; TEMP 36.9; O2SAT 96
[2021-04-11 05:00] VITALS: BMI 19.8
[2021-04-11 05:34] LABS: POC Glucose,Bedside 86 (70-110)
[2021-04-11 07:58] VITALS: BP 146/87; PULSE 71; RESP 20; TEMP 36.9; O2SAT 98
--- NOTE | 2021-04-11 09:29 | P.PN_ITS ---
Internal Medicine - PN: Subj *Date: 04/12/21 *Time: 07:16 Interval history: doing better - more alsert - sigrid diet Exam Vital signs and Labs for Last 24 Hours: Temp Pulse Resp BP Pulse Ox 98.4 F 71 20 146/87 H 98 04/11/21 07:58 04/11/21 07:58 04/11/21 07:58 04/11/21 07:58 04/11/21 07:58 Laboratory Results - last 24 hr 04/10/21 11:14: POC Glucose 122 H 04/10/21 15:55: POC Glucose 102 04/10/21 20:26: POC Glucose 100 04/11/21 05:16: POC Glucose 86 I & O for Last 24 hours: Intake & Output 04/08/21 04/09/21 04/10/21 04/11/21 11:59 11:59 11:59 11:59 Intake Total 480 / 480 2520 / 2520 1320 / 1320 Balance 480 / 480 2520 / 2520 1320 / 1320 Weight 148 lb 1 oz 147 lb 11.355 oz 149 lb 7 oz Microbiology Reports for the Last 24 Hours: Microbiology 04/08/21 15:34 Blood Blood Culture - Preliminary NO GROWTH AFTER 48 HOURS 04/08/21 15:34 Blood Blood Culture - Preliminary NO GROWTH AFTER 48 HOURS 04/08/21 15:42 Urine,Catheterized Urine Culture - Preliminary - Constitutional no acute distress - *Routine HEENT Exam Head: Present: normocephalic Eye: Present: EOMI, PERRL ENT: Present: mucous membranes dry - *Routine Neck Exam Absent: JVD - *Routine Respiratory Exam Absent: respiratory distress - *Routine Cardiovascular Exam Present: RRR, murmur - *Routine Abdominal Exam Present: soft - *Routine Extremities Exam Absent: calf tenderness - *Routine Skin Exam Present: intact - *Routine Neurological Exam Present: alert, CN II-XII intact - Routine Psychiatric Exam Present: normal affect Assessment and Plan (1) History of CVA (cerebrovascular accident) Status: Acute Category: Medical Code(s): Z86.73 - Personal history of transient ischemic attack (TIA), and cerebral infarction without residual deficits (2) Hyperglycemia Status: Acute Category: Medical Code(s): R73.9 - Hyperglycemia, unspecified (3) UTI (urinary tract infection) Status: Acute Qualifiers: Urinary tract infection type: site unspecified Hematuria presence: with hematuria Qualified Code(s): N39.0 - Urinary tract infection, site not specified; R31.9 - Hematuria, unspecified Category: Medical Code(s): N39.0 - Urinary tract infection, site not specified (4) Diabetes mellitus Status: Acute Qualifiers: Diabetes mellitus type: type 2 Diabetes mellitus senior living insulin use: without senior living use Diabetes mellitus complication status: without complica tion Qualified Code(s): E11.9 - Type 2 diabetes mellitus without complications Category: Medical Code(s): E11.9 - Type 2 diabetes mellitus without complications (5) Expressive aphasia Status: Chronic Category: Medical Code(s): R47.01 - Aphasia (6) Seizure disorder Status: Acute Category: Medical Code(s): G40.909 - Epilepsy, unspecified, not intractable, without status epilepticus
[2021-04-11 12:11] LABS: POC Glucose,Bedside 85 (70-110)
[2021-04-11 15:45] VITALS: BP 142/54; PULSE 64; RESP 18; TEMP 37.2; O2SAT 97
[2021-04-11 17:17] LABS: POC Glucose,Bedside 82 (70-110)
--- NOTE | 2021-04-11 18:20 | PC.NURSE ---
No acute changes. Non-verbal. Room air. Remains afebrile. Turns and repostions independently. Incontinent of bowel and bladder. Has had 4 BM's this shift. No complaints this shift. Safety in place. Call art w/in reach.
[2021-04-11 20:00] VITALS: BP 150/71; PULSE 66; RESP 18; TEMP 36.5; O2SAT 98
[2021-04-11 20:37] LABS: POC Glucose,Bedside 86 (70-110)
--- NOTE | 2021-04-12 01:24 | PC.NURSE ---
2300 patient cried out loudly, RN entered room to investigate sound. patient found to be having continuous short rhythmic contractions, all four extremities extended and stiff. head jerking to right side, bilateral eyes rolled back. breathing pattern varies from apneic for a few seconds followed by slightly labored breathing. episode lasted approximately 1.5 min, patient baseline is nonverbal, patient will not follow commands after episode. vs 149/85, hr 100, 96% on ra, 24 rr, temp 99. patient previously on seizure precautions. seizure pads in place, suction set up at bedside. at 2304 patient began having same symptoms as above noted, this episode lasting 2 min. RN receiving orders from physician while jerking going on. new orders received for 1 mg ativan ivp and 1250 mg keppra ivpb.
[2021-04-12 04:00] VITALS: BP 152/89; PULSE 76; RESP 18; TEMP 36.9; O2SAT 100
[2021-04-12 05:00] VITALS: BMI 20.3
[2021-04-12 06:11] LABS: POC Glucose,Bedside 104 (70-110)
--- NOTE | 2021-04-12 07:31 | PC.NURSE ---
no further seizure activity noted. patient lethargic, will open eyes and make eye contact when name said
[2021-04-12 07:58] VITALS: BP 156/75; PULSE 61; RESP 16; TEMP 36.5; O2SAT 98
--- NOTE | 2021-04-12 09:07 | HMH.ACPN2 ---
Internal Medicine - PN: Subj *Date: 04/13/21 *Time: 05:42 Interval history: seizure x2 last pm- somnolent today- will obtain eeg Exam Vital signs and Labs for Last 24 Hours: Temp Pulse Resp BP Pulse Ox 97.7 F 61 16 156/75 H 98 04/12/21 07:58 04/12/21 07:58 04/12/21 07:58 04/12/21 07:58 04/12/21 07:58 Laboratory Results - last 24 hr 04/11/21 11:35: POC Glucose 85 04/11/21 15:58: POC Glucose 82 04/11/21 20:19: POC Glucose 86 04/12/21 05:59: POC Glucose 104 I & O for Last 24 hours: Intake & Output 04/09/21 04/10/21 04/11/21 04/12/21 11:59 11:59 11:59 11:59 Intake Total 480 / 480 2520 / 2520 1320 / 1320 933 / 933 Balance 480 / 480 2520 / 2520 1320 / 1320 933 / 933 Weight 148 lb 1 oz 147 lb 11.355 oz 149 lb 7 oz 153 lb 6 oz Microbiology Reports for the Last 24 Hours: Microbiology 04/08/21 15:42 Urine,Catheterized Urine Culture - Final Yeast - Constitutional no acute distress - *Routine HEENT Exam Head: Present: normocephalic Eye: Present: EOMI, PERRL ENT: Present: mucous membranes dry - *Routine Neck Exam Present: supple - *Routine Respiratory Exam Present: decreased breath sounds - *Routine Cardiovascular Exam Present: RRR - *Routine Abdominal Exam Present: soft - *Routine Extremities Exam Absent: calf tenderness - *Routine Skin Exam Present: intact - *Routine Neurological Exam Present: alert, CN II-XII intact - Routine Psychiatric Exam Present: normal affect Assessment and Plan (1) History of CVA (cerebrovascular accident) Status: Acute Category: Medical Code(s): Z86.73 - Personal history of transient ischemic attack (TIA), and cerebral infarction without residual deficits (2) Hyperglycemia Status: Acute Category: Medical Code(s): R73.9 - Hyperglycemia, unspecified (3) UTI (urinary tract infection) Status: Acute Qualifiers: Urinary tract infection type: site unspecified Hematuria presence: with hematuria Qualified Code(s): N39.0 - Urinary tract infection, site not specified; R31.9 - Hematuria, unspecified Category: Medical Code(s): N39.0 - Urinary tract infection, site not specified (4) Diabetes mellitus Status: Acute Qualifiers: Diabetes mellitus type: type 2 Diabetes mellitus assisted insulin use: without long term care social worker use Diabetes mellitus complication status: without complication Qualified Code(s): E11.9 - Type 2 diabetes mellitus without complications Category: Medical Code(s): E11.9 - Type 2 diabetes mellitus without complications (5) Expressive aphasia Status: Chronic Category: Medical Code(s): R47.01 - Aphasia (6) Seizure disorder Status: Acute Category: Medical Code(s): G40.909 - Epilepsy, unspecified, not intractable, without status epilepticus
[2021-04-12 09:44] LABS: Chloride 96 mmol/L (98-107)
[2021-04-12 09:45] LABS: Potassium 3.2 mmoL/L (3.5-5.1); Sodium 132 mmol/L (136-145)
[2021-04-12 09:48] LABS: Anion Gap 11.2 mEq/L (5-15); Blood Urea Nitrogen 14 mg/dl (9-20); Calcium 8.7 mg/dl (8.4-10.2); Carbon Dioxide 28 mmol/L (22.0-30.0); Creatinine Clearance Estimated 70 mL/min (50-200); Estimated Glomerular Filt Rate 112 ml/min (>60); GFR (African American) 136 ML/MIN (>60); Glucose 107 mg/dl (74-100)
[2021-04-12 09:50] LABS: Basophils # 0.1 K/mm3 (0-0.2); Basophils % 0.7 % (0.1-2.0); Eosinophils # 0.1 K/mm3 (0.0-0.4); Eosinophils % 0.5 % (0.1-12.0); Hematocrit 40.6 % (42.0-52.0); Hemoglobin 12.6 g/dL (14.1-18.0); Lymphocytes # 2.5 K/mm3 (0.7-4.5); Lymphocytes % 18.4 % (10-50); Mean Corpuscular HGB Conc 31.1 g/dL (31.8-35.4); Mean Platelet Volume 7.5 fl (7.4-10.4); Monocytes % 7.3 % (1.7-9.3); Neutrophils # 9.8 K/mm3 (1.8-7.8); Neutrophils % 73.2 % (37.0-80.0); Platelet Count 434 K/mm3 (142-424); Red Blood Count 4.51 M/mm3 (4.60-6.20); Red Cell Distribution Width 12.5 % (11.5-17.5); White Blood Count 13.4 K/mm3 (4.8-10.8)
[2021-04-12 11:19] LABS: POC Glucose,Bedside 103 (70-110)
--- NOTE | 2021-04-12 11:22 | PC.NURSE ---
0903 THIS RN PHONED RT TO INFORM THEM OF AN EEG ORDER. RT VERBALIZED AN UNDERSTANDING.
--- NOTE | 2021-04-12 11:22 | HMH.ACPN ---
Internal Medicine - PN: Subj *Date: 04/12/21 *Time: 11:22 Exam Vital signs and Labs for Last 24 Hours: Temp Pulse Resp BP Pulse Ox 97.7 F 61 16 156/75 H 98 04/12/21 07:58 04/12/21 07:58 04/12/21 07:58 04/12/21 07:58 04/12/21 07:58 Laboratory Results - last 24 hr 04/11/21 11:35: POC Glucose 85 04/11/21 15:58: POC Glucose 82 04/11/21 20:19: POC Glucose 86 04/12/21 05:59: POC Glucose 104 04/12/21 09:16: WBC 13.4 H, RBC 4.51 L, Hgb 12.6 L, Hct 40.6 L, MCV 90.0, MCH 28.0, MCHC 31.1 L, RDW 12.5, Plt Count 434 H, MPV 7.5, Neut % (Auto) 73.2, Lymph % (Auto) 18.4, [place] % (Auto) 7.3, Eos % (Auto) 0.5, Baso % (Auto) 0.7, Neut # (Auto) 9.8 H, Lymph # (Auto) 2.5, [place] # (Auto) 1.0, Eos # (Auto) 0.1, Baso # (Auto) 0.1 04/12/21 09:16: Sodium 132 L, Potassium 3.2 L, Chloride 96 L, Carbon Dioxide 28, Anion Gap 11.2, BUN 14, Creatinine 0.70 D, Estimated Creat Clear 70, Estimated GFR 112, Est GFR ( Amer) 136 D, Glucose 107 H, Calcium 8.7 04/12/21 11:12: POC Glucose 103 I & O for Last 24 hours: Intake & Output 04/09/21 04/10/21 04/11/21 04/12/21 23:59 23:59 23:59 23:59 Intake Total 1560 / 1560 1560 / 2760 2132 Balance 1560 / 1560 1560 / 2760 2132 Weight 67 kg 67 kg 67.784 kg 69.57 kg Microbiology Reports for the Last 24 Hours: Microbiology 04/08/21 15:42 Urine,Catheterized Urine Culture - Final Yeast Assessment and Plan (1) History of CVA (cerebrovascular accident) Status: Acute Category: Medical Code(s): Z86.73 - Personal history of transient ischemic attack (TIA), and cerebral infarction without residual deficits (2) Hyperglycemia Status: Acute Category: Medical Code(s): R73.9 - Hyperglycemia, unspecified (3) UTI (urinary tract infection) Status: Acute Qualifiers: Urinary tract infection type: site unspecified Hematuria presence: with hematuria Qualified Code(s): N39.0 - Urinary tract infection, site not specified; R31.9 - Hematuria, unspecified Category: Medical Code(s): N39.0 - Urinary tract infection, site not specified (4) Diabetes mellitus Status: Acute Qualifiers: Diabetes mellitus type: type 2 Diabetes mellitus custodial insulin use: without termite renewal inspector use Diabetes mellitus complication status: without complication Qualified Code(s): E11.9 - Type 2 diabetes mellitus without complications Category: Medical Code(s): E11.9 - Type 2 diabetes mellitus without complications (5) Expressive aphasia Status: Chronic Category: Medical Code(s): R47.01 - Aphasia (6) Seizure disorder Status: Acute Category: Medical Code(s): G40.909 - Epilepsy, unspecified, not intractable, without status epilepticus The patient's infection will respond to the chosen ABx?: Yes Is the patient receiving the right drug, dose, and route?: Yes Could a more targeted ABx be ordered?: No (CONTINUE INVANZ FOR UTI, ADDED FLUCONAZOLE FOR YEAST)
--- NOTE | 2021-04-12 14:22 | DIET.NUTRFU ---
Pt with severe protein calorie malnutrition with loss of 14% BW past 6mo. Pt was residing at [facility] and they reported significant decreased PO intake. I have not been able to reach [facility] after several attempts and their mailbox is full...will continue to try to confirm past diet. Pt was given ADA diet with soft modifications for safety and TID glucerna. He ate ~25% Monday and the morning of Monday. He has since refused all nourishment since Monday night(04/10). Seizures noted, today pt is somulent. BG have decreased to WNL with 0 PO intake. Of important note pt has been off diabetic medication for some time per [place], though he did have hyperglycemia at admission. No changes to diet order at this time, continuing to monitor. As pt mentation improves, please continue to encourage/cue at meal times observing aspiration precautions.
[2021-04-12 15:59] VITALS: BP 167/76; PULSE 68; RESP 16; TEMP 36.9; O2SAT 96
[2021-04-12 16:09] LABS: POC Glucose,Bedside 86 (70-110)
--- NOTE | 2021-04-12 16:19 | PC.NURSE ---
PATIENT HAS BEEN LETHARGIC FOR MOST OF THIS RN SHIFT. PATIENT DID NOT EAT BREAKFAST, PATIENT ATE ABOUT 25% OF LUNCH. FSBS WAS 86 FOR 1630 CHECK. THIS RN PROVIDED PATIENT WITH ORANGE JUICE AND ENCOURAGE HIM TO DRINK. PATIENT TOOK TWO DRINKS AND PUSHED THIS RN HAND AWAY. NO OTHER CONCERNS AT THIS TIME.
[2021-04-12 20:00] VITALS: BP 153/82; PULSE 78; RESP 22; TEMP 37.3; O2SAT 95
[2021-04-12 21:24] LABS: POC Glucose,Bedside 102 (70-110)
--- NOTE | 2021-04-13 03:03 | PC.NURSE ---
Patient has had no seizure activity this shift. Resting with eyes closed, safety measures in place; will continue to monitor.
[2021-04-13 04:00] VITALS: BP 154/69; PULSE 71; RESP 16; TEMP 36.4; O2SAT 97
[2021-04-13 05:00] VITALS: BMI 20.1
[2021-04-13 06:39] LABS: POC Glucose,Bedside 85 (70-110)
[2021-04-13 07:33] VITALS: BP 131/70; PULSE 80; RESP 19; TEMP 36.8; O2SAT 98
--- NOTE | 2021-04-13 08:23 | P.PN_ITS ---
Internal Medicine - PN: Subj *Date: 04/13/21 *Time: 08:23 Exam Vital signs and Labs for Last 24 Hours: Temp Pulse Resp BP Pulse Ox 98.2 F 80 19 131/70 98 04/13/21 07:33 04/13/21 07:33 04/13/21 07:33 04/13/21 07:33 04/13/21 07:33 Laboratory Results - last 24 hr 04/12/21 09:16: WBC 13.4 H, RBC 4.51 L, Hgb 12.6 L, Hct 40.6 L, MCV 90.0, MCH 28.0, MCHC 31.1 L, RDW 12.5, Plt Count 434 H, MPV 7.5, Neut % (Auto) 73.2, Lymph % (Auto) 18.4, [place] % (Auto) 7.3, Eos % (Auto) 0.5, Baso % (Auto) 0.7, Neut # (Auto) 9.8 H, Lymph # (Auto) 2.5, [place] # (Auto) 1.0, Eos # (Auto) 0.1, Baso # (Auto) 0.1 04/12/21 09:16: Sodium 132 L, Potassium 3.2 L, Chloride 96 L, Carbon Dioxide 28, Anion Gap 11.2, BUN 14, Creatinine 0.70 D, Estimated Creat Clear 70, Estimated GFR 112, Est GFR ( Amer) 136 D, Glucose 107 H, Calcium 8.7 04/12/21 11:12: POC Glucose 103 04/12/21 15:58: POC Glucose 86 04/12/21 20:44: POC Glucose 102 04/13/21 05:53: POC Glucose 85 I & O for Last 24 hours: Intake & Output 04/10/21 04/11/21 04/12/21 04/13/21 23:59 23:59 23:59 23:59 Intake Total 1560 / 2760 2133 / 3 30 / 1230 1440 / 1440 Balance 1560 / 2760 2132 / 2132 30 / 1230 1440 / 1440 Weight 147 lb 11.355 oz 149 lb 7 oz 153 lb 6 oz 152 lb 2 oz Assessment and Plan (1) History of CVA (cerebrovascular accident) Status: Acute Category: Medical Code(s): Z86.73 - Personal history of transient ischemic attack (TIA), and cerebral infarction without residual deficits (2) Hyperglycemia Status: Acute Category: Medical Code(s): R73.9 - Hyperglycemia, unspecified (3) UTI (urinary tract infection) Status: Acute Qualifiers: Urinary tract infection type: site unspecified Hematuria presence: with hematuria Qualified Code(s): N39.0 - Urinary tract infection, site not specified; R31.9 - Hematuria, unspecified Category: Medical Code(s): N39.0 - Urinary tract infection, site not specified (4) Diabetes mellitus Status: Acute Qualifiers: Diabetes mellitus type: type 2 Diabetes mellitus termination clerk insulin use: without nursing home use Diabetes mellitus complication status: without co mplication Qualified Code(s): E11.9 - Type 2 diabetes mellitus without complications Category: Medical Code(s): E11.9 - Type 2 diabetes mellitus without complications (5) Expressive aphasia Status: Chronic Category: Medical Code(s): R47.01 - Aphasia (6) Seizure disorder Status: Acute Category: Medical Code(s): G40.909 - Epilepsy, unspecified, not intractable, without status epilepticus
--- NOTE | 2021-04-13 08:56 | XR_ITS ---
PROCEDURE: XR MANDIBLE MIN 4V CLINICAL INDICATION: C/O L Jaw pain after seizure COMPARISON: No exams were available for comparison FINDINGS: The exam is performed by portable technique due to patient's condition with limitations on the exam due to the portable technique.. No obvious fracture or dislocation is evident. The patient is edentulous. If pain persists, would recommend CT of the mandible for further evaluation. IMPRESSION: No acute findings. Dictated by: Werner Drummond MD 04/13/2021 10:46 Werner Drummond MD in [place] 04/13/2021 10:46
--- NOTE | 2021-04-13 08:57 | HMH.DCSUM ---
General - General Admission date:: 04/08/21 Discharge date: 04/13/21 HPI HPI: 70 yr old male presents to ed via ambulance from [facility]. The patient is nonverbal. 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 Per ed staff at [facility] thought he was getting dehydrated because his eyes and mouth are dry and he is refusing to eat and drink. They report that his primary care provider is trying to get him moved into a higher level of care, but thus far unsuccessful. Handwritten note sent from [facility] says that the patient has been treated for this previously and has seen primary care provider Dr. Jones of [facility]. Pt was found to have UTI and admitted for further work up and pos higher level of care [place] Hospital Course Hospital Course: 70 yr old male presents to ed via ambulance from [facility]. The patient is nonverbal. 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 Per ed staff at [facility] thought he was getting dehydrated because his eyes and mouth are dry and he is refusing to eat and drink. They report that his primary care provider is trying to get him moved into a higher level of care, but thus far unsuccessful. Handwritten note sent from [facility] says that the patient has been treated for this previously and has seen primary care provider Dr. Jones of [facility]. Pt was found to have UTI and admitted for further work up and pos higher level of care [place]. Today 04/08/21 CXR: IMPRESSION: No acute findings. Dictated by: Mavis Thornton 04/08/21 Abd/Pelvis CT: FINDINGS: Liver: Normal. No mass. Gallbladder and bile ducts: Normal. No calcified stones. No ductal dilation. Pancreas: Normal. No ductal dilation. Spleen: Normal. No splenomegaly. Adrenal glands: Normal. No mass. Kidneys and ureters: No hydronephrosis or stone. 0.5 cm right renal simple cyst. Stomach and bowel: Moderate stool ball distends the rectum without abscess or obstruction. Appendix: The appendix is not visualized. No inflammatory change around the cecum. Intraperitoneal space: Unremarkable. No free air. No significant fluid collection. Vasculature: Extensive atherosclerosis without aneurysm. Lymph nodes: Unremarkable. No enlarged lymph nodes. Urinary bladder: Unremarkable as visualized. Reproductive: Unremarkable as visualized. Bones/joints: Eroded vertebral body endplates at L4-L5 level with surrounding soft tissue prominence surround the vertebral bodies suggesting discitis and osteomyelitis. Evaluation for abscess is limited on this nonenhanced study. Consider MRI without and with contrast. Soft tissues: Unremarkable. Other findings: No other acute disease seen on nonenhanced study. As Above. IMPRESSION: 1. Eroded vertebral body endplates at L4-L5 level with surrounding soft tissue prominence surrounding the vertebral bodies suggesting discitis and osteomyelitis. Evaluation for abscess is limited on this nonenhanced study. Recommend MRI without and with contrast. 2. Moderate stool ball distends the rectum without abscess or obstruction. 3. No other acute disease seen on nonenhanced study. As Above. Electronically signed by Donnie Harrell MD 04/09/[address]: FINDINGS: Encephalomalacia is noted in the left temporal and left posterior parietal lobes, likely sequela of old infarct. Focal hypodensity with encephalomalacia noted in the left frontal and parietal lobes, likely sequela of old infarcts. No acute intra or extra-axial hemorrhage, space occupying lesion or acute infarct is noted. Ex vacuo dilation of the ventricles are noted, worse in the left lateral ventricle. Mildly dilated 3rd ventricle is noted. There is generalized parenchymal volume loss. Scattered periventricular and subcortical white matter hypodensities are noted, may represent micr
--- NOTE | 2021-04-13 10:05 | SW/DCPLANNER ---
PATIENT IS DISCHARGING TO [facility]....I HAVE NOTIFIED THE FACILITY HE IS DISCHARGING THERE TODAY...
[2021-04-13 11:55] LABS: POC Glucose,Bedside 120 (70-110)
--- NOTE | 2021-04-13 12:55 | PC.NURSE ---
Attempted to call report to [facility] but there was no answer
--- NOTE | 2021-04-13 13:48 | PC.NURSE ---
report called to Karina at [facility]
--- NOTE | 2021-04-13 13:49 | PC.NURSE ---
[facility] notified of need for transport
--- NOTE | 2021-04-13 14:28 | PC.NURSE ---
elicia returned to patient on discharge when ambulance arrived for transport
== END 2021-04-13 14:28 | DRG 690 ==
LOC: ER 16:27 → 2ND 18:18
PROVIDERS: Nurse Practitioner Family; Admitting Provider Family Medicine; Emergency Provider Emergency Medicine; Visit Provider Emergency Medicine
DX: N39.0 Urinary tract infection, site not specified (principal); E86.0 Dehydration; I69.320 Aphasia following cerebral infarction; G40.909 Epilepsy, unspecified, not intractable, without status epilepticus; F17.210 Nicotine dependence, cigarettes, uncomplicated; I10 Essential (primary) hypertension; E78.5 Hyperlipidemia, unspecified; R31.9 Hematuria, unspecified; E11.65 Type 2 diabetes mellitus with hyperglycemia
CPT/HCPCS: 36415; 70110; 70450; 71045; 74176; 80048; 80053; 81001; 82962; 83605; 84484; 85025; 87040; 87086; 87581; 87633; 87798; 93005; 93306; 93308; 95816; 96365; 96366; 99283; J1335; J1953